=== PATIENT | male | born 1985 ===

== ENCOUNTER 2020-01-29 15:27 | Emergency (ER) | payer SELFPAY ==
[~2020-01-29] VITALS: Ht 180.3 cm; Wt 108.0 kg
[2020-01-29 15:28] VITALS: BP 140/93; Ht 180.3 cm; Wt 108.0 kg
== END 2020-01-29 16:05 | disposition home or self-care (01) ==
LOC: ED 15:27
DX: R51 Headache (principal); R50.9 Fever, unspecified; Z20.828 Contact with and (suspected) exposure to other viral communicable diseases
CPT/HCPCS: U0003-CS